=== PATIENT | female | born 1965 | race African-American/Black ===

== ENCOUNTER 2016-09-22 16:12 | Emergency (ER) | payer MEDICAID ==
[~2016-09-22] VITALS: Ht 180.3 cm; Wt 120.0 kg
[2016-09-22] MEDS ORDERED: TETANUS, DIPHTHERIA, PERTUSSIS VAC/PF 0.5ML (>7YR OLD) IM ONE (19:15)
[2016-09-22] MEDS ORDERED: IBUPROFEN 600MG TABLET PO ONE (19:15)
[2016-09-22 20:05] VITALS: BP 127/71
== END 2016-09-22 21:20 | disposition home or self-care (01) ==
LOC: ER 18:47
DX: M77.51 Other enthesopathy of right foot and ankle (principal); M25.561 Pain in right knee; F17.210 Nicotine dependence, cigarettes, uncomplicated
CPT/HCPCS: 73630; 90471; 90715; 99284; Z7610